=== PATIENT | female | born 2000 | race Caucasian/White ===

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

== ENCOUNTER 2023-08-16 07:34 | Inpatient (IN) ==
[2023-08-16] MEDS ORDERED: OXYTOCIN 30 UNITS/NSS 30 UNITS/500 ML BAG IV PRN ×2 (07:55→12:59)
[2023-08-16] MEDS ORDERED: LIDOCAINE 1% LOCAL 20 ML VIAL INFIL PRN (07:55)
--- NOTE | 2023-08-16 08:32 | History & Physical Report ---
Date of Service August 16, 2023 Assessment & Plan (1) Encounter for induction of labor: Plan admit, iv, labs. start pit. fhts categ 1. Admission and Anticipated Discharge Date Admission Date: August 16, 2023 History of Present Illness Chief Complaint: induction Primary Care Provider: Zafar Steele 23yo at 39+wks egeugenie presents to L&D for elective induction of labor. No rom, vb. +FM. No ctx. PNC c/b 1. Rh neg, had rhogam, eval pp PNL rh neg, ri, gbs neg OBH: x 1 GYNH: nl paps no stds Allergies Allergy/AdvReac Type Severity Reaction Status Date / Time No Known Drug Allergies Allergy Verified 08/15/23 15:53 Home Medications Medication Instructions Recorded Confirmed Type vits no.124-ferrous fum 1 tab PO DAILY 07/23/23 08/16/23 History 27 mg iron-folic acid 800 mcg tablet ( Vitamin) Patient History Medical History (Updated 08/16/23 @ 08:31 by Tierney Lora MD, FACOG) Oral contraceptive prescribed Iron deficiency anemia during History of ADHD Family History Grandfather (Paternal) Hypertension Grandmother (Paternal) No problems noted. Aunt Breast cancer Father Non-Hodgkin lymphoma Denies family history of Ovarian cancer Colorectal cancer Social History Smoking Status: Never smoker Second Hand Exposure: No; Do You Dip or Chew Tobacco: No; Hx Alcohol Use: No Hx Substance Use: No Preferred Language: Arabic Communication Ability: Effective Product Marketing Manager Required: No Beliefs That Will Affect Care: None marital status: Single marital status details: fob: Richie Matta- [phone] Current Living Situation: Family Current Living Situation Comment: lives with father, daughter, 1 cat, 2 dogs (father changing cat litter) current occupational status: employed current occupation: [employer] Other Information That Helps Us Care for You: No Feels Safe at Home: Yes Safety Concerns: Feels Safe At This Time Assistive Devices: None Review of Systems as per Subjective / HPI Physical Exam Constitutional: WD/WN, vitals as above Respiratory: normal respiratory effort, lungs clear to auscultation Cardiovascular: Rate/Rhythm: regular rate and regular rhythm Gastrointestinal (Abdomen): soft gravid nt efw 7-8# Musculoskeletal: no edema nontender calves Neurologic: grossly normal Psychiatric: A+Ox3, euthymic affect Genitourinary: Manual OB Exam: + cervical dilation 3 cm, + cervical effacement 80%, + station -2 and + amniotic fluid (arom) clear OB Exam Monitor Tracing: + external FHT monitor used, + external uterine monitor used, + category I and + normal FHT variability Results & Data Vital Signs (Past 12 Hours) Vital Signs Temp Pulse Resp BP 08/16/23 07:46 98.8 F 18 08/16/23 07:44 134 H 132/80 Coding Level of Care Code None Diagnoses Encounter for induction of labor Z34.90
[2023-08-16] MEDS: OXYTOCIN 30 UNITS/NSS 30 UNITS/500 ML BAG IV PRN (08:49)
[2023-08-16] MEDS: LACTATED RINGER'S 1,000 ML IV PRN (08:49)
[2023-08-16 09:00] LABS: Hematocrit (blood only) 32.1 % (37.0-47.0); Hemoglobin 10.1 g/dl (12.0-16.0); Mean Corpuscular Hemoglobin 25.2 pg (25.0-34.0); Mean Corpuscular Hgb Conc 31.5 g/dL (32.0-36.0); Mean Platelet Volume 11.7 fL (9.4-12.4); Platelet Count 208 K/uL (130-400); RDW Coefficient of Variation 15.8 % (11.5-14.5); RDW Standard Deviation 45.5 fL (36.4-46.3); Red Blood Count 4.01 M/uL (4.20-5.40); White Blood Count 9.28 K/ul (4.8-10.8)
--- NOTE | 2023-08-16 10:48 | Anesthesiology Consultation ---
Date of Service August 16, 2023 Assessment & Plan Chart Review Chart Review: Acceptable Risk for Labor Epidural Consults Requested none ASA ASA2 Proposed Anesthesia Anesthesia Type: Labor Epidural Risk / Benefits Reviewed With: PT / POA / Parent / Guardian, Accepts Plan and Informed Consent Obtained History Height/Weight Height: 5 ft 3 in Weight: 77.564 kg Allergies Allergy/AdvReac Type Severity Reaction Status Date / Time No Known Drug Allergies Allergy Verified 08/15/23 15:53 Medications Home Medications Medication Instructions Recorded Confirmed Last Taken vits [id number] fum 1 tab PO DAILY 07/23/23 08/16/23 08/12/23 08:00 27 mg iron-folic acid 800 mcg tablet ( Vitamin) Active Medications Generic Name Dose Route Start Last Admin Trade Name Freq PRN Reason Stop Dose Admin Oxytocin 30 units in 500 mls @ 5 mls/hr 08/16/23 07:55 08/16/23 10:00 Pitocin 30 Units/Nss IV 08/18/23 07:54 0.3 units/hr .Q24H PRN 5 mls/hr Labor Induction/Augmentation Titration Protocol 0.3 UNITS/HR Lactated Ringer's 1,000 mls @ 125 mls/hr 08/16/23 07:55 08/16/23 10:30 Lr IV 08/18/23 07:54 999 mls/hr .Q8H PRN Infusion L&D Protocol Protocol Past Medical History Medical History Oral contraceptive prescribed Iron deficiency anemia during History of ADHD Exercise / Class Metabolic Activity II 4-5 Yardwork/Stairs/Walk up hill Past Family History Family History Grandfather (Paternal) Hypertension Grandmother (Paternal) No problems noted. Aunt Breast cancer Father Non-Hodgkin lymphoma Denies family history of Ovarian cancer Colorectal cancer Past Anesthesia History No Hx of Anesthesia Complications and No Family Hx of Anesthesia Complications History of PONV No Hx of PONV and No Hx of Motion Sickness Social History Smoking Status: Never smoker Do You Dip or Chew Tobacco: No Hx Alcohol Use: No Hx Substance Use: No substance use type: does not use Physical Exam Vital Signs Last Vital Signs Temp 98.8 F 08/16/23 08:31 Pulse 102 H 08/16/23 10:29 Resp 18 08/16/23 07:46 BP 132/74 08/16/23 10:29 ENMT Mouth: no dentition abnormality Thyromental Distance: > or= 3.5 Finger Breadths Mallampati Class: II Neck normal visual inspection Respiratory normal respiratory effort Auscultation: lungs clear to auscultation bilaterally Cardiovascular Rate/Rhythm: regular rate and regular rhythm Testing Laboratory Results 08/16/23 08:08
[2023-08-16] MEDS: BUPIVACAINE 0.25% PF 30 ML VIAL ONE (11:05)
[2023-08-16] MEDS: fentANYL 2 MCG/ML BUPIVacaine 0.125%-NSS 100ML BAG ONE (11:05)
[2023-08-16] MEDS: LIDOCAINE 2%/EPINEPHRINE 1:200,000 20 ML PF ONE (11:05)
[2023-08-16] MEDS ORDERED: BUPIVACAINE 0.25% PF 30 ML VIAL EPI PRN (11:08)
[2023-08-16] MEDS ORDERED: fentANYL 2 MCG/ML BUPIVacaine 0.125%-NSS 100ML BAG EPI PRN (11:08)
[2023-08-16] MEDS ORDERED: NALOXONE HCL 1 MG in SODIUM CHLORIDE 0.9% 1,000 ML IV PRN (11:08)
[2023-08-16] MEDS ORDERED: fentaNYL citrate PF 100 MCG/2 ML VIAL EPI PRN (11:08)
[2023-08-16] MEDS ORDERED: LIDOCAINE 2% MPF LOCAL 5 ML VIAL EPI PRN (11:08)
[2023-08-16] MEDS ORDERED: diphenhydrAMINE 50 MG/ML VIAL IV PRN (11:08)
[2023-08-16] MEDS ORDERED: SODIUM CHLORIDE 0.9% PF INJ 10 ML VIAL EPI PRN (11:08)
[2023-08-16] MEDS ORDERED: ONDANSETRON INJ 2 MG/ML 2 ML VIAL IV PRN (11:08)
[2023-08-16] MEDS ORDERED: ePHEDrine sulfate 50 MG/ML AMP IV PRN (11:08)
[2023-08-16] MEDS ORDERED: ROPIVACAINE 0.5% PF 5 MG/ML 20 ML VIAL EPI PRN (11:08)
[2023-08-16] MEDS ORDERED: NALBUPHINE HCL 5 MG in SYRINGE 0 ML IV PRN (11:08)
[2023-08-16] MEDS ORDERED: NALOXONE HCL 0.4 MG/1 ML VIAL/CARP IV PRN (11:08)
[2023-08-16] MEDS ORDERED: NURSING L&D Epidural Breakthrough Pain Update ONE (11:17)
--- NOTE | 2023-08-16 11:26 | Labor Progress Brief Note ---
Date of Service August 16, 2023 Subjective just got epidural, starting to get better Assessment & Plan (1) Encounter for induction of labor: Plan: 23 yo at 39 5/7 wga admitted for iol VSS Fetus cat 1 Labor - pit at 5, progress noted. Continue induction GBS neg epidural in place Admission and Anticipated Discharge Date Admission Date: August 16, 2023 Physical Exam Genitourinary: Manual OB Exam: + cervical dilation (4+), + cervical effacement 80% and + station -1 OB Exam Monitor Tracing: + external FHT monitor used, + external uterine monitor used (q2-4) and + category I (120/mod/+accel/-decel) Results & Data Vital Signs (Past 12 Hours) Vital Signs Temp Pulse Resp BP Pulse Ox 08/16/23 11:19 95 H 98 08/16/23 11:17 86 128/60 08/16/23 11:15 20 08/16/23 11:15 86 20 124/62 08/16/23 11:14 85 98 08/16/23 11:13 84 129/69 08/16/23 11:11 88 127/70 08/16/23 11:10 18 08/16/23 11:10 18 08/16/23 11:09 98 08/16/23 11:09 84 08/16/23 11:09 90 129/73 08/16/23 11:07 84 128/76 08/16/23 11:05 86 20 127/65 08/16/23 11:04 86 99 08/16/23 11:00 20 08/16/23 11:00 20 08/16/23 10:59 102 H 99 08/16/23 10:54 120 H 99 08/16/23 10:49 110 H 98 08/16/23 10:47 18 08/16/23 10:47 18 08/16/23 10:29 102 H 132/74 08/16/23 10:20 98.1 F 08/16/23 09:45 90 110/61 08/16/23 08:54 105 H 130/73 08/16/23 08:31 98.8 F 08/16/23 07:46 98.8 F 18 08/16/23 07:44 134 H 132/80 Coding Level of Care Code None Diagnoses Encounter for induction of labor Z34.90
[2023-08-16] MEDS: fentaNYL citrate PF 100 MCG/2 ML VIAL EPI STA (12:15)
[2023-08-16] MEDS: BUPIVACAINE 0.25% PF 30 ML VIAL EPI STA (12:16)
--- NOTE | 2023-08-16 12:20 | Anesthesia Procedure Note ---
Date of Service August 16, 2023 Anesthesia Epidural Re-Dose Vital Signs Temp Pulse Resp BP Pulse Ox 98.1 F 90 20 130/93 100 08/16/23 10:20 08/16/23 12:17 08/16/23 12:00 08/16/23 12:17 08/16/23 12:14 Notes Pain Intensity: 7 Dilatation (cm): 9.0 Effacement (%): 100 Called by nursing to evaluate epidural as the patient is having increased pain. The epidural was re-dosed with the following medications after negative aspiration of the epidural catheter for CSF/HEME. 3mL of 0.25% Bupivacaine and 75 mcg fentanyl After Epidural Re-Dose Mental Status: alert / awake / arousable Pain: improving with treatment Airway Patency, RR, SpO2: stable & adequate BP & HR: stable & adequate
[2023-08-16] MEDS ORDERED: HYDROCORTISONE ACETATE 25 MG SUPP PR PRN (12:59)
[2023-08-16] MEDS ORDERED: ACETAMINOPHEN 325 MG TAB PO PRN (12:59)
[2023-08-16] MEDS ORDERED: bisacodyL 10 MG SUPP PR PRN (12:59)
--- NOTE | 2023-08-16 13:00 | Delivery Summary ---
Vaginal Delivery Summary Date of Service August 16, 2023 Vaginal Delivery Summary [facility] PREOPERATIVE DIAGNOSIS: 1. Single intrauterine at 39 5/7 wga 2. Elective IOL POSTOPERATIVE DIAGNOSIS: 1. Single intrauterine at 39 5/7 wga 2. Elective IOL 3. Delivered PROCEDURE: 1. Normal spontaneous vaginal delivery. SURGEON: Renee Avalos MD ANESTHESIA: Epidural. QUANTITATIVE BLOOD LOSS: 100 mL FLUIDS: Continuous LR. URINE OUTPUT: 350cc by straight cath after delivery COMPLICATIONS: Shoulder dystocia CONDITION: Stable. INDICATIONS: 23 yo at 39 5/7 wga presented for elective induction of labor. She was started on pitocin and underwent AROM. She received an epidural for pain control and quickly progressed to complete and desired to push. FINDINGS: A viable male infant, weight pending with Apgars of 8 and 8 at 1 and 5 minutes respectively. SPECIMEN: Cord blood OPERATIVE REPORT: The patient progressed to 10 cm, 100% effaced and +2 station, pushed over intact perineum with anesthesia to deliver a viable male infant, weight and Apgars as above. Head of delivered in DARIEL position. No nuchal cord was present. Body and shoulders did not delivery with gentle traction and shoulder dystocia called. Suprapubic pressure applied with McRobert's maneuver and L anterior shoulder shoulder then delivered spontaneously. Remainder of body delivered spontaneously. was delivered to maternal abdomen and nursing staff. Delayed cord clamping was performed for 60 seconds. Cord was clamped and cut. Cord blood was obtained. Placenta delivered spontaneously intact with 3-vessel cord. IV oxytocin and fundal massage were given for excellent hemostasis. Vagina, cervix, perineum, and placenta were inspected. Hemostatic R periurethral abrasion noted and not needed to be repaired. Sponge and needle counts correct x2. No sponges were left behind. Mother and stable in immediate period. MNP Vaginal Delivery Charge Vaginal Delivery Codes: 51440 global code for the antepartum, delivery, and post- Delivery Type Details: [facility]
[2023-08-16 13:17] LABS: Base Excess Cord Arterial Bld -3.1 mEq/L (-9-1.8); CO2 Cord Arterial Blood 60 mmHg (39.1-73.5); HCO3 Cord Arterial Blood 26 mmol/L (19.7-28.5); Oxygen Sat Cord Arterial Blood < 60.0 % (<60); PO2 Cord Arterial Blood 28 mmHg (4.1-31.7); pH Cord Arterial Blood 7.24 (7.1-7.38)
[2023-08-16 13:18] LABS: Base Excess Cord Venous Blood -2.9 mEq/L (-7.7-1.9); Cord Venous Blood HCO3 22 mmol/L (18.4-26.8); Cord Venous Blood PCO2 38 mmHg (30.4-57.2); Cord Venous Blood PO2 37 mmHg (14.1-43.3); Cord Venous Blood pH 7.37 (7.20-7.44); O2 Saturation Cord Venous Bld 77.9 % (<68)
--- NOTE | 2023-08-16 14:24 | Anesthesia Procedure Note ---
Date of Service August 16, 2023 Anesthesia Post Epidural Note Vital Signs Vital Signs: Temp Pulse Resp BP Pulse Ox 98.1 F 81 18 118/59 L 99 08/16/23 10:20 08/16/23 14:17 08/16/23 13:45 08/16/23 14:17 08/16/23 12:44 Pain Intensity Bilateral Abdomen: Pain Intensity: 5 Notes Mental Status: alert / awake / arousable and participated in evaluation Nausea / Vomiting: adequately controlled Pain: adequately controlled Airway Patency, RR, SpO2: stable & adequate BP & HR: stable & adequate Hydration State: stable & adequate Neuraxial Anesthesia: was administered and sensory block is resolving Anesthetic Complications: no major complications apparent and Pt Satisfied with anesthetic care Epidural: Removed without complications and With tip intact
[2023-08-16] MEDS: IBUPROFEN 600 MG TAB PO PRN (15:05)
[2023-08-16] MEDS: BENZOCAINE 20% SPRY 85 APPLN/85 GM CAN EXT PRN (15:05)
[2023-08-16] MEDS: ePHEDrine sulfate 50 MG/ML AMP ONE (20:42)
[2023-08-16] MEDS: SODIUM CHLORIDE 0.9% PF INJ 10 ML VIAL ONE (20:42)
[2023-08-16] MEDS: fentaNYL citrate PF 100 MCG/2 ML VIAL ONE (20:42)
[2023-08-16] MEDS: LIDOCAINE 2%/EPINEPHRINE 1:200,000 20 ML PF EPI STA (20:43)
[2023-08-16] MEDS: SODIUM CHLORIDE 0.9% PF INJ 10 ML VIAL EPI STA (20:43)
[2023-08-16] MEDS: DIPHTHER/TETAN/PERTUS Vaccine (Tdap, Adol/Adult) 0.5mL IM ONE (20:43)
[2023-08-16] MEDS: DOCUSATE SODIUM 100 MG CAP PO SCH (22:05)
--- NOTE | 2023-08-17 06:05 | Obstetrical Progress Note ---
Date of Service <Luis Aly DO - Last Filed: 08/17/23 06:05> August 17, 2023 Assessment & Plan <uLis AlyDO - Last Filed: 08/17/23 06:05> (1) Encounter for assessment: 23 y/o PPD#1 following Eating well, voiding well, ambulating well Vitals reviewed, WNL Pain well controlled with Motrin Routine post care - OOB, ambulation, diet progression as tolerated Will have 6 week follow up with Dr. Avalos <Renee Avalos MD - Last Filed: 08/17/23 07:11> (1) Encounter for assessment: Subjective <Luis Aly DO - Last Filed: 08/17/23 06:05> Ambulation: ambulating normally Voiding: no voiding problems Passing Gas:: Yes Diet Tolerance:: regular diet Lochia:: Small Feeding Type:: bottle feeding pain well controlled with Motrin Review of Systems -Denies fever or chills -Denies dyspnea, chest pain, or palpitations -Denies dysuria -Denies headache or changes in vision Physical Exam <Luis Aly DO - Last Filed: 08/17/23 06:05> General: Alert and oriented. No acute distress Cardiac: Regular rate and rhythm, no murmurs appreciated Respiratory: Lungs clear to auscultation bilaterally, No increased work of breathing Abdominal: Soft, non-tender, non-distended. Bowel sounds present. Uterus: Uterine fundus firm, palpable below umbilicus Extremities: No lower extremity edema, calves non-tender bilaterally Results & Data <Luis Aly DO - Last Filed: 08/17/23 06:05> Vital Signs (Past 12 Hours) Vital Signs Temp Pulse Resp BP Pulse Ox O2 Del Method 08/17/23 03:00 36.8 C 76 16 112/75 98 Room Air 08/16/23 23:25 37 C 88 18 103/65 98 Room Air 08/16/23 19:55 37.2 C 83 18 102/63 98 Room Air Supervising Physician <Renee Avalos MD - Last Filed: 08/17/23 07:11> Co-Signing Physician Notes Resident Physician Supervision Note: I interviewed and examined the patient. Discussed with Dr. Aly and agree with findings and plan as documented in the note. Any exceptions or clarifications are listed here: PP1 s/p , doing well. VSS, exam benign and wnl. Desires dc hme at 24 hrs Documented By: Renee Avalos MD Resident Activity Tracking <Luis Aly, - Last Filed: 08/17/23 06:05> Resident Involvement: Resident Care Provided Care Provided: OB Delivery
[2023-08-17] MEDS: PRENATAL VITAMIN 1 TAB PO SCH (08:00)
[2023-08-17] MEDS: FERROUS SULFATE 325 MG TAB PO SCH (08:00)
[2023-08-17] MEDS ORDERED: bisacodyL 5 MG TABEC PO SCH (20:00)
== END 2023-08-17 14:00 | disposition home or self-care (01) | DRG 807 ==
LOC: 4S1 07:34 → 4E2 16:09